=== PATIENT | male | born 1995 | race Caucasian/White ===

== ENCOUNTER 2020-09-01 17:36 | Emergency (ER) | payer BC, SELFPAY ==
--- NOTE | ~2020-09-01 | XR_ITS ---
EXAMINATION: XR abdomen/kub 1V DATE: 09/01/2020 21:29 INDICATION: Right flank pain. TECHNIQUE: A supine view of the abdomen on 2 radiographs was obtained. COMPARISON: CT abdomen and pelvis 09/01/2020 FINDINGS: There are no dilated loops of bowel. There is a 2 mm stone in proximal right ureter overlyi ng the right L3 transverse process. IMPRESSION: 1. 2 mm stone in proximal right ureter overlying the right L3 transverse process. Reviewed, dictated and finalized at location A. IMPRESSION: 1. 2 mm stone in proximal right ureter overlying the right L3 transverse proces s.
--- NOTE | ~2020-09-01 | CT_ITS ---
EXAMINATION: CT abdomen pelvis wo con DATE: 09/01/2020 21:01 INDICATION: Left lower quadrant abdominal pain. Nausea. TECHNIQUE: Computed tomography (CT) of the abdomen and pelvis was performed without intravenous contr ast. Automated exposure control and iterative reconstruction technique were employed. The dose-length product was 1688.51 mGy-cm. COMPARISON: None. FINDINGS: The visualized portions of the lung bases are clear without pneumonia or pleural effusion. The heart size is normal. No pericardial effusion. There is diffuse hepatic steatosis. The gallbladde r, spleen, pancreas, adrenal glands, and left kidney are normal. There is mild right hydronephrosis. There is a 2 mm stone in proximal right ureter. There are no dilated loops of bowel. The appendix is normal. There is mild lumbar spondylosis. IMPRESSION: 1. 2 mm stone in proximal right ureter with mild right hydronephrosis. Reviewed, dictated and finalized at location A.
[2020-09-01 18:41] VITALS: BP 170/77; PULSE 72; RESP 16; TEMP 36.6; O2SAT 97
[2020-09-01 18:57] LABS: Basophils Percent Auto 0.3 % (0.2-1.2); Eosinophils Percent Auto 0.3 % (0-4.4); Hematocrit 43.5 % (42.0-52.0); Hemoglobin 14.8 g/dL (14.0-18.0); Immature Granulocyte Absolute 0.03 K/mm3 (0.00-0.031); Immature Granulocyte Percent A 0.3 % (0-0.5); Lymphocytes Percent Auto 17.1 % (18.3-44.2); Mean Corpuscular Volume 85.3 fl (80-100); Mean Platelet Volume 11.3 fl (7.4-10.4); Monocytes Absolute Auto 0.8 K/mm3 (0.1-0.6); Monocytes Percent Auto 9.4 % (2.6-8.5); Neutrophils Absolute Auto 6.4 K/mm3 (1.3-6.7); Neutrophils Percent Auto 72.6 % (45.5-73.1); Platelet Count Result 174 k/mm3 (150-375); Red Cell Distribution Width 12.6 % (11.5-14.5); White Blood Count 8.8 K/mm3 (4.5-10.0)
[2020-09-01 19:09] LABS: Alanine Aminotransferase 75 U/L (4-50); Albumin Level 4.5 g/dL (3.5-5.1); Alkaline Phosphatase 79 U/L (38-126); Anion Gap 9 mmol/L (8-16); Aspartate Amino Transferase 50 U/L (17-59); Bilirubin,Total 0.8 mg/dL (0.2-1.3); Blood Urea Nitrogen 19 mg/dL (9-20); Calcium 9.1 mg/dL (8.4-10.2); Carbon Dioxide 25 mmol/L (22-30); Chloride 106 mmol/L (98-107); Estimated CRCL calculation 104 ml/min; Estimated Glomerular Filt Rate > 60; Glucose 97 mg/dL (75-110); Lipase 64 U/L (23-300); Sodium 140 mmol/L (137-145)
[2020-09-01 19:14] LABS: Add Urine Microscopic? YES; Appearance Urine Clear (Clear); Bilirubin Urine Negative (Negative); Blood Urine 1+ (Negative); Color Urine Yellow (Yellow); Glucose Urine UA Negative (Negative); Ketones Urine Negative (Negative); Leukocyte Esterase Ur Negative LEU/UL (Negative); Mucus Urine Few /lpf; Nitrate Urine Negative (Negative); Protein Urine 2+ mg/dL (Negative); Squamous Epithelial Cell Urine Rare /hpf (Few); Urobilinogen Urine Negative mg/dL (<2.0); WBC Urine 0-3 /hpf
[2020-09-01 19:16] LABS: Specific Grav Ur 1.031 (1.001-1.035)
--- NOTE | 2020-09-01 20:33 | ED.ABDPAIN ---
HPI - Abdominal Pain General Chief Complaint: Abdominal Pain Stated Complaint: low abd pain Time Seen by Provider: 09/01/20 20:29 Source: patient and family Mode of arrival: ambulatory Limitations: no limitations History of Present Illness HPI narrative: Patient is a 25-year-old male who presents for evaluation of right-sided abdominal pain that began this morning. Described as sharp, aching in nature. No radiation of the pain. No testicle pain or pain in his penis. No discharge. No fever or chills although he does report some mild nausea. Patient denies any dysuria or hematuria. No history of kidney stones. No history of abdominal surgeries. No recent travel. Related Data Home Medications Medication Instructions Recorded Confirmed No Home Medications 09/01/20 09/01/20 Allergies Allergy/AdvReac Type Severity Reaction Status Date / Time No Known Allergies Allergy Mild Verified 06/23/19 09:57 Review of Systems Review of Systems: Narrative: CONSTITUTIONAL: Denies fever, chills, or sweats. CARDIOVASCULAR: Denies chest pain RESPIRATORY: Denies cough or dyspnea. GASTROINTESTINAL: Reports right-sided abdominal pain and nausea GENITOURINARY: Denies dysuria or hematuria. SKIN: Denies rash or itching. MUSCULOSKELETAL: Denies back pain, joint pain, or myalgia. NEUROLOGIC: Denies headache, numbness, or weakness. [facility] Past Medical History Medical History Asthma Concussion Jaw fracture Surgical History Surgical History No history of previous surgery Family History Family History (Updated 01/01/16 @ 23:19 by DOCTOR UNKNOWN) Mother Family history of obesity Family history of mental disorder Family history of diabetes mellitus in first degree relative Father Family history of mental disorder Family history of alcoholism Family history of diabetes mellitus in first degree relative Sibling Depression Other Family history of arthritis Family history of cardiovascular disease Social History Social History Smoking status: Never smoker Alcohol intake: never Substance use: current Substance use type: marijuana Exam Narrative: Exam Narrative: GENERAL: Awake, alert, conversant HEAD: Normocephalic, atraumatic. EYES: PERRLA and EOMI. ENT: Nares clear, no rhinorrhea or epistaxis. Mucous membranes moist. NECK: Supple. CHEST: No respiratory distress, breathing even and non labored HEART: Regular rate, sinus rhythm ABDOMEN:Non distended, no reproducible abdominal tenderness in the right lower quadrant, negative McBurney's point, negative Dominguez sign, negative Rovsing sign, no guarding, no flank tenderness EXTREMITIES: Normal range of motion. No edema. SKIN: Warm, dry, no rash. NEURO:No focal deficits. Alert and oriented x3 Course Vital Signs Vital signs: Vital Signs Temperature 36.6 C 09/01/20 18:41 Pulse Rate 72 09/01/20 18:41 Respiratory Rate 16 09/01/20 18:41 Blood Pressure 170/77 H 09/01/20 18:41 Pulse Oximetry 97 09/01/20 18:41 Temperature 36.6 C 09/01/20 18:41 Pulse Rate 68 09/01/20 21:50 Respiratory Rate 18 09/01/20 21:50 Blood Pressure 146/98 H 09/01/20 21:50 Pulse Oximetry 97 09/01/20 21:50 MDM - Abdominal Pain MDM Narrative Medical decision making narrative: Patient presenting for evaluation of right-sided abdominal pain. At the time of assessment, ABCs are intact, vital signs notable for hypertension but the patient is experiencing some pain. IV access obtained and labs were drawn. Patient was given oral pain medication and nausea medicine. No leukocytosis. No UTI although he does have hematuria. CT scan confirms right 2 mm ureteral stone. Patient does have a creatinine of 1.4. Mild hydronephrosis, we can continue to trend this with outpatient labs. Patient is tolerat
[2020-09-01] MEDS: ONDANSETRON HCL ODT 4 MG TABLET PO (21:46)
[2020-09-01] MEDS: oxyCODONE/ACETAMINOPHEN (*CRX) 5-325 MG TABLET 1 TABLET PO (21:47)
[2020-09-01 21:50] VITALS: BP 146/98; PULSE 68; RESP 18; O2SAT 97
== END 2020-09-01 22:17 | disposition home or self-care (01) ==
PROVIDERS: Emergency Provider Emergency Medicine; PCP Family Medicine
DX: N13.2 Hydronephrosis with renal and ureteral calculous obstruction (principal); J45.909 Unspecified asthma, uncomplicated
CPT/HCPCS: 36415; 74018; 74176; 80053; 81001; 83690; 85025; 99284; A9270

== ENCOUNTER 2021-07-11 14:29 | Emergency (ER) | payer BC, SELFPAY ==
[2021-07-11 14:39] VITALS: BP 151/88; PULSE 96; RESP 18; TEMP 36.9; O2SAT 99
--- NOTE | 2021-07-11 15:00 | ED.ANIMALBIT ---
HPI - Animal Bite General Chief Complaint: Animal Bite Stated Complaint: Cat bite Time Seen by Provider: 07/11/21 15:00 Source: patient Mode of arrival: ambulatory Limitations: no limitations History of Present Illness HPI narrative: 26-year-old male presented for complaints of ferral cat bite to right hand last night. States the cat has been lingering at his house, he tried to pet it and it bit his hand. Pt applied peroxide after cleaning with soap and water. Denies redness, swelling, pain, drainage to the site. Unknown tetanus vaccination. Related Data Allergies Allergy/AdvReac Type Severity Reaction Status Date / Time No Known Allergies Allergy Mild Verified 06/23/19 09:57 Review of Systems Review of Systems: CONSTITUTIONAL: Denies body aches, fever, chills, or sweats. EYES: Denies visual changes, redness, or discharge. ENT: Denies rhinorrhea, congestion, sore throat, or otalgia. CARDIOVASCULAR: Denies chest pain, palpitations, or edema. RESPIRATORY: Denies cough or dyspnea. GASTROINTESTINAL: Denies abdominal pain, nausea, vomiting, or diarrhea. GENITOURINARY: Denies dysuria or hematuria. SKIN: puncture wound from cat right hand MUSCULOSKELETAL: Denies back pain, joint pain, or myalgia. NEUROLOGIC: Denies headache, numbness, tingling, or weakness. PSYCH: Denies depression or anxiety. [facility], [facility] Past Medical History Medical History Asthma Concussion Jaw fracture Surgical History Surgical History No history of previous surgery Family History Family History Mother Family history of obesity Family history of mental disorder Family history of diabetes mellitus in first degree relative Father Family history of mental disorder Family history of alcoholism Family history of diabetes mellitus in first degree relative Sibling Depression Other Family history of arthritis Family history of cardiovascular disease Social History Social History Smoking status: Never smoker Alcohol intake: never Substance use: current Substance use type: marijuana Comments At time of signature, I have reviewed and agree with nursing past medical, surgical, social and family history unless otherwise noted. Please see nursing chart for further information. There is no relevant family history pertinent to the presenting complaint Exam Narrative: GENERAL: Well-appearing, well-nourished, and in no acute distress. HEAD: Normocephalic, atraumatic. EYES: PERRLA, conjunctivae clear, and EOMI. ENT: Mucous membranes moist. NECK: Supple. No lymphadenopathy CHEST: Clear to auscultation. No respiratory distress. HEART: Regular rate and rhythm. SKIN: Warm, dry. pinpoint red round puncture site to right dorsal hand between 1st and 2nd metacarpals, no surrounding erythema, induration, drainage, or warmth, RPP, sensation and rom intact, cap refill <3seconds. NEURO: Alert and oriented x3. PSYCH: Normal mood and affect Course Course Emergency Course: Patient is aware of diagnosis, understands and agrees to treatment plan. Anticipatory guidance given. Patient agrees to follow-up as directed and is aware of reasons to seek care at the emergency department. Portions of this record may have been created with voice recognition software Level of Care: Express Care Visit Vital Signs Vital signs: Vital Signs Temperature 98.4 F 07/11/21 14:39 Pulse Rate 96 07/11/21 14:39 Respiratory Rate 18 07/11/21 14:39 Blood Pressure 151/88 H 07/11/21 14:39 Pulse Oximetry 99 07/11/21 14:39 Temperature 98.4 F 07/11/21 14:39 Pulse Rate 96 07/11/21 14:39 Respiratory Rate 18 07/11/21 14:39 Blood Pressure 151/88 H 07/11/21 14:39 Pulse Oximetry 99 07/11/21 14:39 Reviewed MDM - Animal Bit
[2021-07-11] MEDS: TETANUS,DIPHTHERIA,AC PERTUSSIS ADULT (0.5 ML) BOOSTRIX IM (15:14)
== END 2021-07-11 15:19 | disposition home or self-care (01) ==
PROVIDERS: Emergency Provider Nurse Practitioner Family
DX: S61.431A Puncture wound without foreign body of right hand, initial encounter (principal); W55.01XA Bitten by cat, initial encounter; Z23 Encounter for immunization; J45.909 Unspecified asthma, uncomplicated
CPT/HCPCS: 90471; 90715; 99213; G0463

== ENCOUNTER 2023-08-08 15:42 | Emergency (ER) | payer OTHER, SELFPAY ==
--- NOTE | ~2023-08-08 | XR_ITS ---
EXAMINATION: XR shoulder RT min 2V INDICATION: Right clavicle pain, initial encounter TECHNIQUE: Three views of the right shoulder are submitted. COMPARISON: None FINDINGS: There is an acute, traumatic, closed, comminuted fracture of the mid clavicle. The distal f racture fragment is caudally displaced approximately 2.5 cm. Alignment at the acromioclavicular and s ternoclavicular joints appears normal. The glenohumeral joint space is normal. Soft tissues are unrem arkable. IMPRESSION: 1. Comminuted and caudally displaced fracture of the right mid clavicle. Reviewed, dictated and finalized at location L. CORRESPONDENT
--- NOTE | ~2023-08-08 | XR_ITS ---
EXAMINATION: XR clavicle RT INDICATION: Right clavicle pain TECHNIQUE: Two views of the right clavicle are obtained. COMPARISON: None available FINDINGS: There is an acute, traumatic, closed, comminuted fracture of the mid clavicle. The distal f racture fragment is caudally displaced approximately 1.8 cm. Alignment at the acromioclavicular and s ternoclavicular joints appears normal. No additional fracture is identified. IMPRESSION: 1. Comminuted and caudally displaced fracture of the mid clavicle. Reviewed, dictated and finalized at location L. L MARKETING MANAGER
[2023-08-08 15:51] VITALS: BP 130/76; PULSE 63; RESP 16; TEMP 36; O2SAT 98
--- NOTE | 2023-08-08 16:34 | ED.UPPEXIN ---
HPI - Extremity Injury (Upper) General Chief Complaint: Extremity Injury, Upper Stated Complaint: right shoulder pain Time Seen by Provider: 08/08/23 16:35 Focused HPI: Jose Antonio is a 28-year-old male patient presenting to the ER today with complaints of right shoulder and clavicle pain after falling in his yard while exercising. He reports that he tripped and landed on the right shoulder/clavicle. Denies hitting his head or any loss of consciousness. Denies any neck pain at this time. General: Well-developed, obese, in no apparent distress Head: Normocephalic, atraumatic. Cardio: Regular rate and rhythm, s1 and s2 normal, no murmur appreciated. Resp: Clear to auscultation bilaterally, no rhonchi, rales, wheezing or rubs. Musculoskeletal: No obvious deformity, swelling noted over the right clavicle, tender to palpation over the anterior right clavicle and over the anterior, posterior, and lateral right shoulder joint, unable to lift arm above head due to significant pain, bilateral hand daycare manager equal and strong, peripheral pulse strong, no edema, no cyanosis, normal gait and station Patient screened in triage and initial orders placed. X-rays of the right shoulder and clavicle were ordered. Additional care and disposition to be based upon diagnostic testing and treatment. Related Data Allergies Allergy/AdvReac Type Severity Reaction Status Date / Time No Known Allergies Allergy Mild Verified 06/23/19 09:57 Review of Systems Review of Systems: Pertinent positives per HPI. Patient denies any fever, chills, rash, headache, visual changes, dizziness, cough, runny nose, sore throat, shortness of breath, chest pain, palpitations, nausea, vomiting, diarrhea, constipation, abdominal pain, or any urinary issues. [facility] Past Medical History Medical History Asthma Concussion Jaw fracture Surgical History Surgical History No history of previous surgery Family History Family History Mother Family history of obesity Family history of mental disorder Family history of diabetes mellitus in first degree relative Father Family history of mental disorder Family history of alcoholism Family history of diabetes mellitus in first degree relative Sibling Depression Other Family history of arthritis Family history of cardiovascular disease Social History Social History Smoking status: Never smoker Alcohol intake: never Substance use: current Substance use type: marijuana Exam Narrative: General: Well-developed, obese, in no apparent distress Head: Normocephalic, atraumatic. Cardio: Regular rate and rhythm, s1 and s2 normal, no murmur appreciated. Resp: Clear to auscultation bilaterally, no rhonchi, rales, wheezing or rubs. Musculoskeletal: No obvious deformity when compared to the left clavicle/shoulder, swelling noted over the right clavicle, tender to palpation over the anterior right clavicle and over the anterior, posterior, and lateral right shoulder joint, unable to lift arm above head due to significant pain, bilateral hand daycare manager equal and strong, peripheral pulse strong, no edema, no cyanosis, normal gait and station Course Vital Signs Vital signs: Vital Signs Temperature 36.0 C L 08/08/23 15:51 Pulse Rate 63 08/08/23 15:51 Respiratory Rate 16 08/08/23 15:51 Blood Pressure 130/76 08/08/23 15:51 Pulse Oximetry 98 08/08/23 15:51 Temperature 36.0 C L 08/08/23 15:51 Pulse Rate 63 08/08/23 15:51 Respiratory Rate 16 08/08/23 15:51 Blood Pressure 130/76 08/08/23 15:51 Pulse Oximetry 98 08/08/23 15:51 MDM - Extremity Injury (Upper) MDM Narrative Medical decision making narrative: At the time of visit patient is restin
[2023-08-08 17:13] VITALS: BP 144/90; PULSE 86; RESP 16; TEMP 36.7; O2SAT 99
== END 2023-08-08 17:36 | disposition home or self-care (01) ==
PROVIDERS: Emergency Provider Nurse Practitioner Family
DX: S42.021A Displaced fracture of shaft of right clavicle, initial encounter for closed fracture (principal); J45.909 Unspecified asthma, uncomplicated; W01.0XXA Fall on same level from slipping, tripping and stumbling without subsequent striking against object, initial encounter
CPT/HCPCS: 73000; 73030; 99284; A4565